=== PATIENT | female | born 1990 | race Caucasian/White ===

== ENCOUNTER 2018-03-14 22:51 | Emergency (ER) | payer MEDICAID ==
[~2018-03-14] VITALS: Ht 177.8 cm; Wt 81.6 kg
[2018-03-14 21:13] VITALS: BP 95/49
[~2018-03-14 22:51] MED LIST: FERR-15 PO; PREN-385 PO
--- NOTE | 2018-03-14 22:51 | NUR ---
PT AMBULATED WITH CANE TO ER BED 04
--- NOTE | 2018-03-14 22:52 | NUR ---
27/ CAME IN FROM L&D WITH C/O 01/22 BACK PAIN AND RT LEG X 3 DAYS WORSENED TODAY. +PMSC TO RT LEG. DENIES TRAUMA/INJURY. PMH: SCIATICA Addendum: 03/14/18 at 2326 by APARNA IUP 32 WEEKS,
[2018-03-14 22:58] VITALS: BP 93/45
[2018-03-15 00:06] VITALS: BP 95/51
--- NOTE | 2018-03-15 00:06 | NUR ---
Markus veloz in EDM - 03/15/18 at 0051 by APARNA Patient discharged with v/s stable. Written and verbal after care instructions given and explained. Patient verbalized understanding. Ambulatory with steady gait. All questions addressed prior to discharge. Advised to follow up with PMD.
--- NOTE | 2018-03-15 00:06 | NUR ---
Patient discharged with v/s stable. Written and verbal after care instructions given and explained. Patient verbalized understanding. Wheel Chair Assisted with to car. All questions addressed prior to discharge. Advised to follow up with PMD.
== END 2018-03-15 00:06 | disposition home or self-care (01) ==
LOC: MED 22:51 → EDSTATUS 22:51 → MED 03-15 00:06
DX: O26.893 Other specified pregnancy related conditions, third trimester (principal); M54.41 Lumbago with sciatica, right side; Z3A.32 32 weeks gestation of pregnancy; Z79.899 Other long term (current) drug therapy
CPT/HCPCS: 99283